=== PATIENT | male | born 1990 | race Caucasian/White ===

== ENCOUNTER 2024-12-03 09:25 | Emergency (ER) | payer OTHER ==
[2024-12-03] MEDS ORDERED: LIDOCAINE 1% 20 ML MDV ONE (09:40)
--- NOTE | 2024-12-03 10:10 | EDPHYS ---
Physician Documentation [facility] Name: Matthew Modi Age: 34 yrs Sex: Male : 1990 Arrival Date: 12/03/2024 Time: 09:25 Bed 17 Private MD: ED Physician Luciano Jarrett HPI: 12/03 09:43 This 34 yrs old Male presents to ER via Ambulatory with complaints of dr5 Laceration - right hand. 09:43 Onset: The symptoms/episode began/occurred acutely. dr5 09:43 This is a 34-year-old male with no past medical history coming in with laceration to dr5 right hand after slipping into mud and cutting it on oysters. Patient reports he is a 3-month-old at home and recently got a Tdap immunization. Patient denies any allergies to medications.. Historical: - Allergies: 09:35 No Known Allergies; iw - Home Meds: 09:35 None [Active]; iw - PMHx: 09:35 None; iw - Immunization history:: Adult Immunizations up to date, Last tetanus immunization: up to date. - Infectious Disease History:: Denies. - Social history:: Smoking status: Patient denies any tobacco usage or history of. ROS: 09:43 Constitutional: as per hpi dr5 Exam: 10:12 Constitutional: This is a well developed, well nourished patient who is awake, alert, dr5 and in no acute distress. Head/Face: Normocephalic, atraumatic. ENT: Nares patent. No nasal discharge, no septal abnormalities noted. Tympanic membranes are normal and external auditory canals are clear. Oropharynx with no redness, swelling, or masses, exudates, or evidence of obstruction, uvula midline. Mucous membranes moist. Neck: Trachea midline, no thyromegaly or masses palpated, and no cervical lymphadenopathy. Supple, full range of motion without nuchal rigidity, or vertebral point tenderness. No Meningismus. Chest/axilla: Normal chest wall appearance and motion. Nontender with no deformity. No lesions are appreciated. Cardiovascular: Regular rate and rhythm with a normal S1 and S2. Normal PMI, no JVD. No pulse deficits. Respiratory: Lungs have equal breath sounds bilaterally, clear to auscultation. No rales, rhonchi or wheezes noted. No increased work of breathing, no retractions or nasal flaring. Back: No spinal tenderness. No costovertebral tenderness. Full range of motion. 10:12 Skin: injury, laceration(s), the wound is approximately 3 cm(s), with a depth of 1 cm(s), of the palm of right hand, Vital Signs: 09:34 Resp 16; Temp 98.1; Pulse Ox 100% ; Weight 90.72 kg; Height 5 ft. 11 in. ; Pain 4/10; iw 09:34 Body Mass Index 27.89 (90.72 kg, 180.34 cm) iw 09:34 Pain Scale: Adult iw Laceration: 10:12 Wound Repair of 3cm ( 1.2in ) subcutaneous laceration to palm of right hand. Linear dr5 shaped.. Distal neuro/vascular/tendon intact. Anesthesia: Local anesthetic administered with 3 mls of 1% lidocaine. Wound prep: Simple cleansing by me, Wound irrigation by me, Copious irrigation. Skin closed with 4 4-0 Prolene using simple sutures and sterile technique. Dressed with non-adherent dressing. Patient tolerated well. MDM: 09:30 Medical Screening Exam initiated dr5 10:12 Differential diagnosis: abrasion, contusion, laceration. Data reviewed: vital signs, dr5 nurses notes. Care significantly affected by the following Social Determinants of Health: Poor access to healthcare and/or lack of insurance, Poor access to transportation, Problems related to employment. Counseling: I had a detailed discussion with the patient and/or guardian regarding the historical points, exam findings, and any diagnostic results supporting the discharge/admit diagnosis, the presence of at least one elevated blood pressure reading (>120/80) during this emergency department visit, the need for outpatient follow up, for definitive care, a family practitioner, to return to the emergency department if symptoms worsen or persist or if there are any questions or concerns that arise at home. Medication response: Lidocaine. Response to treatment: the patient's symptoms have resolved after treatment. Special discussion: I discussed in detail with the patient the higher chance of wound infection based on his presenting history. Discussed removing sutures in 10-14 days. ED course: Tetanus is Up To Date. Will give patient Keflex / Doxycline to cover for cellulitis / Vibrio given patient fell in mud, water, and cut himself on oyster. Patient is agreeable to plan. Laceration repair completed with complete anesthesia of wound and well approximation of edges.. 12/03 09:36 Order name: Dressing - Wound; Complete Time: :47 dr5 12/03 09:36 Order name: Prolene, Sutures: 4-0 prolene; Complete Time: :47 dr5 12/03 09:36 Order name: Setup Suture Tray; Complete Time: :47 dr5 Administered Medications: :47 Drug: Lidocaine Infiltration (1 %) 20 ml 20 ml Infiltration once; to bedside {Note: adm rs5 to right hand at bedside by provider.} Volume: 20 ml; Route: Infiltration; 10:25 Follow up: Response: No adverse reaction db Disposition Summary: 12/03/24 10:09 Discharge Ordered Notes: Location: Home dr5 Condition: Stable dr5 Diagnosis - Laceration without foreign body of right hand dr5 Followup: dr5 - With: Emergency Department - When: As needed - Reason: Worsening of condition Followup: dr5 - With: Private Physician - When: 10 - 14 days - Reason: Recheck today's complaints, Continuance of care, Staple/Suture removal, Re-evaluation by your physician Discharge Instructions: - Discharge Summary Sheet dr5 - Laceration Care, Adult dr5 Forms: - Medication Reconciliation Form dr5 - Antibiotic Education dr5 - Patient Portal Instructions dr5 - Leadership Thank You Letter dr5 Prescriptions: - Cephalexin 500 mg Oral Capsule - take 1 capsule ORAL route every 6 hours for 10 days; 40 capsule; Refills: 0, dr5 Product Selection Permitted - Doxycycline Hyclate 100 mg Oral tablet - take 1 tablet ORAL route every 12 hours for 7 days; 14 tablet; Refills: 0, dr5 Product Selection Permitted Addendum: 12/05/2024 07:42 I was immediately available for consultation during this patient's visit. I did not e c2 personally see the patient or discuss the patient with the MARCIA. . Signatures: Marichuy Gibbons RN RN iw Hamilton Cartagena RN RN rs5 Luciano Jarrett MD MD ec2 Roberto Modi FNP-C [employer]-Cdr5 Shantel Ibarra RN db
--- NOTE | 2024-12-03 10:10 | ER ---
Nurse's Notes [facility] Name: Matthew Modi Age: 34 yrs Sex: Male : 1990 Arrival Date: 12/03/2024 Time: 09:25 Bed 17 Private MD: Diagnosis: Laceration without foreign body of right hand Presentation: 12/03 09:34 Chief complaint: Patient states: slipped and fell on some oyster shell, laceration to iw right hand. Coronavirus screen: At this time, the client does not indicate any symptoms associated with coronavirus-19. Ebola Screen: No symptoms or risks identified at this time. Complicating Factors: There are no complicating factors for this patient. Initial Sepsis Screen: Does the patient meet any 2 criteria? No. Patient's initial sepsis screen is negative. Does the patient have a suspected source of infection? No. Patient's initial sepsis screen is negative. Risk Assessment: Do you want to hurt yourself or someone else? Patient reports desire/thoughts of hurting themselves or someone else. Provider notified. Onset of symptoms was December 03, 2024. 09:34 Method Of Arrival: Ambulatory iw 09:34 Acuity: RUSTAM 4 iw Historical: - Allergies: 09:35 No Known Allergies; iw - Home Meds: 09:35 None [Active]; iw - PMHx: 09:35 None; iw - Immunization history:: Adult Immunizations up to date, Last tetanus immunization: up to date. - Infectious Disease History:: Denies. - Social history:: Smoking status: Patient denies any tobacco usage or history of. Screenin:26 [facility] ED Fall Risk Assessment (Adult) History of falling in the last 3 months, db including since admission No falls in past 3 months (0 pts) Confusion or Disorientation No (0 pts) Intoxicated or Sedated No (0 pts) Impaired Gait No (0 pts) Mobility Assist Device Used No (0 pt) Altered Elimination No (0 pt) Score/Fall Risk Level 0 - 2 = Low Risk Oriented to surroundings, Maintained a safe environment. Abuse screen: Denies threats or abuse. Denies injuries from another. Nutritional screening: No deficits noted. Tuberculosis screening: No symptoms or risk factors identified. Assessment: 10:01 Reassessment: Patient appears in no apparent distress at this time. Patient and/or db family updated on plan of care and expected duration. Pain level reassessed. Patient is alert, oriented x 3, equal unlabored respirations, skin warm/dry/pink. General: Appears in no apparent distress. comfortable, Behavior is calm, cooperative. Pain: Complains of pain in right hand. Neuro: Level of Consciousness is awake, alert, obeys commands, Oriented to. 10:26 Musculoskeletal: No deficits noted. No signs and/or symptoms reported regarding the db musculoskeletal system. 10:28 Injury Description: Laceration is bleeding moderately. db Vital Signs: 09:34 Resp 16; Temp 98.1; Pulse Ox 100% ; Weight 90.72 kg; Height 5 ft. 11 in. ; Pain 4/10; iw 09:34 Body Mass Index 27.89 (90.72 kg, 180.34 cm) iw 09:34 Pain Scale: Adult iw ED Course: 09:28 Patient arrived in ED. ra3 09:29 [facility]5 09:29 Luciano Jarrett MD is Attending Physician. dr5 09:35 Triage completed. iw 09:36 Arm band placed on. iw 09:57 Shantel Ibarra, RN is Primary Nurse. db 10:10 Assist provider with laceration repair on palm of right hand using sutures. Set up db tray. Performed by Roberto ESCOBAR Patient tolerated well. 10:25 Dressings: Kerlix 4X4s X 1; right hand. db 10:26 Patient has correct armband on for positive identification. Bed in low position. Call db light in reach. Side rails up X 1. Provided Education on: DISCHARGE AND LACERATION CARE. Pillow given. 10:26 Patient did not have IV access during this emergency room visit. db Administered Medications: 09:47 Drug: Lidocaine Infiltration (1 %) 20 ml 20 ml Infiltration once; to bedside {Note: adm rs5 to right hand at bedside by provider.} Volume: 20 ml; Route: Infiltration; 10:25 Follow up: Response: No adverse reaction db Medication: 10:26 VIS not applicable for this client. db Outcome: 10:09 Discharge ordered by . dr5 10:26 Discharged to home ambulatory, db 10:26 Condition: stable 10:26 Discharge instructions given to patient, Instructed on discharge instructions, follow up and referral plans. Prescriptions given X 2, 10:28 Patient left the ED. db Signatures: Marichuy Gibbons, RN RN iw Shantel Ibarra RN RN db Hamilton Cartagena, DEJA RN rs5 Noreen Garcia 3 Roberto Modi, PRINCESS-C PHONE TECHNICIAN-[facility]5
[2024-12-03 10:33] VITALS: TEMP 98.1; O2SAT 100
== END 2024-12-03 10:28 | disposition home or self-care (01) ==
LOC: ER 09:25
DX: S61.411A Laceration without foreign body of right hand, initial encounter (principal)
CPT/HCPCS: 99284; 12042; J2003